=== PATIENT | female | born 1945 | race Caucasian/White ===

== ENCOUNTER 2018-07-13 10:08 | Outpatient (CLI) | payer MEDICARE ==
[~2018-07-13 10:08] MED LIST: Gadobenate Dimeglumine 529 MG/1 ML (20ML VIAL) ONE
--- NOTE | 2018-07-13 11:44 | MRI ---
MRI BRAIN WITH AND WITHOUT CONTRAST: HISTORY: 72-year-old female with ataxia, R27.0 TECHNIQUE: Multiple sequences obtained in axial, sagittal, and coronal planes; pre and post IV injection of gado linium-based contrast agent: 14 mL MultiHance FINDINGS: The ventricles are normal in size and configuration. There is no restricted diffusion, abnormal intr aaxial enhancement, mass, midline shift or any other mass effect, recent intraaxial hemorrhage, or ex traaxial fluid collection. There are a few scattered punctate T2-hyperintensities in the cerebral whi te matter consistent with mild chronic ischemic white matter changes due to mild microvascular athero sclerosis. No focal lesion is identified in the brainstem or cerebellum. IMPRESSION: 1. Mild chronic ischemic white matter changes. 2. Otherwise negative. olivia POS: [facility]
== END 2018-07-13 10:09 | disposition home or self-care (01) ==
LOC: SCSMRI 10:08
PROVIDERS: ATTEND Psychiatry & Neurology Neurology
DX: R27.0 Ataxia, unspecified (principal); R90.89 Other abnormal findings on diagnostic imaging of central nervous system
CPT/HCPCS: 70553; 82565; A9577

== ENCOUNTER 2020-10-31 08:22 | Outpatient (CLI) | payer MEDICARE ==
[2020-10-31] MEDS ORDERED: Iopamidol 370 76% 100 ML VIAL ONE (09:25)
== END 2020-10-31 08:23 | disposition home or self-care (01) ==
LOC: NM 08:22
PROVIDERS: ATTEND Otolaryngology Plastic Surgery within the Head & Neck
DX: E21.0 Primary hyperparathyroidism (principal)
CPT/HCPCS: 70492; 78072; 82565; A9500